=== PATIENT | female | born 1995 | race Caucasian/White ===

== ENCOUNTER 2019-10-17 01:59 | Emergency (ER) | payer OTHER ==
--- NOTE | 2019-10-17 02:05 | ED ---
Substance Abuse/Use - HPI Summary HPI Summary: This pt is a 24 Y/O F BIBA to [facility] [place] after consuming marijuana edible. She states that she was celebrating her birthday and that the edible was too strong. She states that she passed out after becoming light headed after consuming the edible. She denies any head injury, neck pain, N/V, SOB, CP, and fevers. She states that she has no aggravating factors and states that she is feeling better. She has a PMHx of - History Of Current Complaint Chief Complaint: EDSubstanceAbuse Stated Complaint: DOESNT FEEL WELL AFTER EDIBLE PER EMS Time Seen by Provider: 10/17/19 02:02 Hx Obtained From: Patient, EMS ?: No Onset/Duration of Drug/ETOH Abuse: Minutes Ingestion History: Type/Name Of Drug - marijuana edible Overdose Characteristics: Oral Severity Initially: Moderate Severity Currently: Moderate Character: Anxious Aggravating Factor(s): Nothing Alleviating Factor(s): Other - time Associated Signs And Symptoms: Negative - head injury, neck pain, N/V, SOB, CP, and fevers, Other: - syncopal episode PMH/Surg Hx/FS Hx/Imm Hx Previously Healthy: Yes Endocrine/Hematology History: Denies: Hx Diabetes Cardiovascular History: Denies: Hx Syncope Respiratory History: Denies: Hx Chronic Obstructive Pulmonary Disease (COPD) GI History: Denies: Hx Gastrointestinal Bleed - Cancer History Hx Chemotherapy: No Hx Radiation Therapy: No - Surgical History Hx Anesthesia Reactions: No - Immunization History Immunizations Up to Date: Yes Review of Systems Negative: Fever Negative: Chest Pain Negative: Shortness Of Breath Negative: Vomiting, Nausea Musculoskeletal: Negative - head injury, neck pain Positive: Syncope. Negative: Headache All Other Systems Reviewed And Are Negative: Yes Physical Exam - Summary Physical Exam Summary: Appearance: Well-appearing, Well-nourished, lying in bed comfortable Skin: Warm, dry, no obvious rash Eyes: sclera anicteric, no conjunctival pallor ENT: mucous membranes moist Neck: deferred Respiratory: No signs of respiratory distress Cardiovascular: Appears well perfused, pulses are nml Abdomen: deferred Musculoskeletal: Moving all 4 extremities without obvious discomfort Neurological: Awake and alert, mentation is normal, speech is fluent and appropriate Psychiatric: affect is normal, does not appear anxious or depressed Triage Information Reviewed: Yes Vital Signs On Initial Exam: Temp Pulse Resp BP SpO2 FiO2 Vital Signs Reviewed: Yes Procedures - Sedation Patient Received Moderate/Deep Sedation with Procedure: No Course/Dx - Course Course Of Treatment: This pt is a 24 Y/O F BIBA to [facility] [place] after consuming marijuana edible. She states that she was celebrating her birthday and that the edible was too strong. She states that she passed out after becoming light headed after consuming the edible. She has no acute abnormalities on her PE. She will be discharged home with a Dx of substance abuse. - Diagnoses Provider Diagnoses: Marijuana abuse - Critical Care Time Critical Care Statement: Critical care time is provided exclusive of any time spent performing procedures. Discharge ED - Sign-Out/Discharge Documenting (check all that apply): Patient Departure - discharge - Discharge Plan Condition: Good Disposition: HOME Patient Education Materials: Cannabis Abuse (ED) Additional Instructions: I do not recommend consuming cannabis in edibles unless the dose is known, as the slow absorption through the GI tract can lead to prolonged and excessive effects. - Attestation Statements Document Initiated by Scribe: Yes Documenting Scribe: Rome Camarillo Provider For Whom Scribe is Documenting (Include Credential): Lucian Morgan MD Scribe Attestation: Rome Dan, scribed for Lucian Morgan MD on 10/17/19 at 0608. Status of Scribe Document: Ready
[2019-10-17 07:15] VITALS: BP 101/57
== END 2019-10-17 07:15 | disposition home or self-care (01) ==
LOC: ED 01:59
DX: F12.10 Cannabis abuse, uncomplicated (principal)
CPT/HCPCS: 99282